=== PATIENT | female | born 1960 | race Caucasian/White ===

== ENCOUNTER 2020-02-05 16:02 | Emergency (ER) | payer SELFPAY ==
[2020-02-05] MEDS ORDERED: Sodium Chloride 0.9% 10 ML Syringe FLUSH PRN (16:41)
[2020-02-05] MEDS ORDERED: Ketorolac 30 MG/ML SDV IVPUSH ONE (16:41)
[2020-02-05] MEDS ORDERED: Sodium Chloride 0.9% 1,000 ML IV SCH (16:45)
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
[2020-02-05] MEDS ORDERED: cefTRIAXone 1 GM in Sodium Chloride 0.9% 100 ML IV ONE (17:08)
== END 2020-02-05 18:20 | disposition home or self-care (01) ==
LOC: JD.ED 16:02
DX: L03.811 Cellulitis of head [any part, except face] (principal); F17.210 Nicotine dependence, cigarettes, uncomplicated; Z91.048 Other nonmedicinal substance allergy status
CPT/HCPCS: 36415; 80053; 83605; 85025; 86140; 87040; 96365; 96375; 99283; J0696; J1885; J7030; J7050

== ENCOUNTER 2020-03-31 14:41 | Emergency (ER) | payer SELFPAY ==
[2020-03-31] MEDS ORDERED: HYDROmorphone 1 MG/ML Syringe IM ONE (15:27)
[2020-03-31] MEDS ORDERED: Ondansetron 4 MG Tab.DIS PO ONE (15:27)
--- NOTE | 2020-03-31 15:51 | EDM.PDOC ---
ED HPI GENERAL MEDICAL PROBLEM - General Chief Complaint: Lower Extremity Injury/Pain Stated Complaint: R FOOT INJURY Time Seen by Provider: 03/31/20 15:14 Source of Information: Reports: Patient, RN Notes Reviewed History Limitations: Reports: No Limitations - History of Present Illness INITIAL COMMENTS - FREE TEXT/NARRATIVE: Patient is a 59-year-old female who presents the ED for evaluation of her right foot/ankle injury. Patient notes 1 week ago Monday, she was sitting on an elevated flower bed, and jumped off and landed on both feet, she states she instantly had pain in her right ankle, and thought maybe she just sprained it. She has been using Tylenol and ibuprofen, and icing it fairly regularly. She is appreciating quite a bit of swelling and bruising to the bottom of her foot, and on the lateral aspect of her right foot. States her pain is around a 10 out of 10, with weightbearing and walking. She states at rest is not painful at all. She has been using crutches as well, states pain is is getting too intense so she comes to the ER for further evaluation. 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 ED EXAM, GENERAL - Physical Exam Exam: See Below Exam Limited By: No Limitations General Appearance: Alert, WD/WN, No Apparent Distress Respiratory/Chest: No Respiratory Distress, Lungs Clear, Normal Breath Sounds, No Accessory Muscle Use, Chest Non-Tender Cardiovascular: Normal Peripheral Pulses, Regular Rate, Rhythm, No Murmur Peripheral Pulses: 2+: Radial (L), Radial (R) Extremities: Joint Swelling (2+ swelling to right ankle), Limited Range of Motion (of right wrist d/t pain) Neurological: Alert, Oriented, Normal Cognition, No Motor/Sensory Deficits Psychiatric: Normal Affect, Normal Mood Skin Exam: Warm, Dry, Intact, No Rash, Ecchymosis (on the dorsum of the foot, the lateral surface and on the plantar surface as well.) Course - Vital Signs Last Recorded V/S: Last Vital Signs Temp 98.1 F 03/31/20 15:13 Pulse 102 H 03/31/20 15:13 Resp 18 03/31/20 15:13 BP 148/73 H 03/31/20 15:13 Pulse Ox 98 03/31/20 15:13 - Orders/Labs/Meds Orders: Active Orders 24 hr Category Date Time Status Ankle Min 3V Rt [CR] Stat Exams 03/31/20 15:19 Ordered Foot 2V Rt [CR] Stat Exams 03/31/20 15:19 Ordered OLEKSANDR Bandage [Elastic Wrap] [OM.PC] Routine Oth 03/31/20 17:05 Ordered Meds: Medications Discontinued Medications Generic Name Dose Route Start Last Admin Trade Name Elizabeth PRN Reason Stop Dose Admin Hydromorphone HCl 1 mg 03/31/20 15:27 03/31/20 15:55 Dilaudid IM 03/31/20 15:28 1 mg ONETIME ONE Administration Ondansetron HCl 4 mg 03/31/20 15:27 03/31/20 15:55 Zofran Odt PO 03/31/20 15:28 4 mg ONETIME ONE Administration - Re-Assessments/Exams Free Text/Narrative Re-Assessment/Exam: 03/31/20 16:00 Patient presents to the ED for evaluation of her ongoing right ankle/foot injury. I do highly suspect that the patient is experiencing pain and swelling from a severely sprained/strained ankle. X-rays will be obtained at this time. Patient was given something for pain and nausea. 03/31/20 17:04 X-rays demonstrate no focal breaks, or other bony abnormalities. This was reviewed by myself and Dr. Covarrubias. The official radiology read is still pending. We will Oleksandr wrap the ankle, for compression purposes, she can still use the crutches, and we will get her some for pain, and have her evaluated by Dr. Silva for possible soft tissue injury. Departure - Departure Time of Disposition: 17:09 Disposition: Home, Self-Care 01 Condition: Good Clinical Impression: Right ankle pain Qualifiers: Chronicity: acute Qualified Code(s): M25.571 - Pain in right ankle and joints of right foot - Discharge Information *PRESCRIPTION DRUG MONITORING PROGRAM REVIEWED*: Yes *COPY OF PRESCRIPTION DRUG MONITORING REPORT IN PATIENT FEDE: No Prescriptions: Acetaminophen/HYDROcodone [Troy 325-5 MG] 1 tab PO Q6H PRN #15 tablet PRN Reason: Pain Instructions: Ankle Pain Referrals: PCP,None [Primary Care Provider] - Forms: ED Department Discharge Additional Instructions: You have been evaluated in the ED for your right ankle/foot injury. Your x-ray demonstrated no acute fracture or suspicious bony abnormality. Please use ice as tolerated to the affected area. Please try to elevated the affected extremity as much as possible to relieve swelling. You may take Tylenol 500 mg or ibuprofen 600mg q6 hrs for pain relief. Please do so until you have a tolerable level of pain with activity. Do not exceed 4000mg Tylenol, Do not exceed 3200mg ibuprofen in a 24 hour time period. You were given a prescription for a strong pain medication, hydrocodone/acetaminophen 5/325, please take 1 tab every 6 hours as needed for pain not relieved by Tylenol or ibuprofen alone. Please note this does contain Tylenol in it, so do not take more than 4000 mg in a 24-hour time span. These medications can be addictive, so please take as few as possible to achieve adequate pain control. These meds can also be quite constipating, recommend that you increase your oral fluid intake and take a stool softener like MiraLAX while taking these medications. Please call Ortho for follow-up and further evaluation Dr. Silva is our orthopedic surgeon, his office number is [phone]. Please call and set up an appointment as soon as possible for further management. Please return to ED if your symptoms should change or worsen. Sepsis Event Note (ED) - Evaluation Sepsis Screening Result: No Definite Risk - Focused Exam Vital Signs: Vital Signs Temp Pulse Resp BP Pulse Ox 03/31/20 15:13 98.1 F 102 H 18 148/73 H 98 - My Orders Last 24 Hours: My Active Orders 03/31/20 15:19 Ankle Min 3V Rt [CR] Stat Foot 2V Rt [CR] Stat 03/31/20 17:05 OLEKSANDR Bandage [Elastic Wrap] [OM.PC] Routine - Assessment/Plan Last 24 Hours: My Active Orders 03/31/20 15:19 Ankle Min 3V Rt [CR] Stat Foot 2V Rt [CR] Stat 03/31/20 17:05 OLEKSANDR Bandage [Elastic Wrap] [OM.PC] Routine
--- NOTE | 2020-04-01 08:59 | CR ---
Right foot: 2 views of the right foot were obtained. Calcaneal fracture is again noted. Single screw within the distal shaft of the 1st and 5th metatarsals. Joint space narrowing is noted within the 1st MTP joint. Mild soft tissue swelling is noted. No additional abnormality is seen. Impression: 1. Calcaneal fracture. Please correlate if patient has symptoms to this area for this to be acute. 2. Previous surgery. 3. Degenerative change and soft tissue swelling. Diagnostic code #3 This report was dictated in MDT
--- NOTE | 2020-04-01 08:59 | CR ---
Right ankle: 4 views of the right ankle were obtained. Comparison: No prior ankle study. Calcaneal fracture is identified. This is located posterior to the subtalar joint. Single screw is noted within the 1st metatarsal as well as additional single screw within the 5th metatarsal. Ankle mortise is symmetric. No additional fracture or other abnormality is appreciated. Impression: 1. Calcaneal fracture. 2. Old surgery as noted above. 3. No additional bony abnormality is seen. Diagnostic code #3 This report was dictated in MDT
== END 2020-03-31 17:28 | disposition home or self-care (01) ==
LOC: JD.ED 14:41
DX: M25.571 Pain in right ankle and joints of right foot (principal)
CPT/HCPCS: 73610; 73620; 96372; 99283; A9270; J1170

== ENCOUNTER 2020-08-14 21:25 | Emergency (ER) | payer OTHER ==
[2020-08-14] MEDS ORDERED: Fluconazole 150 MG Tab PO STA (22:23)
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
== END 2020-08-14 22:40 | disposition home or self-care (01) ==
LOC: JD.ED 21:25
DX: L65.9 Nonscarring hair loss, unspecified (principal); L29.9 Pruritus, unspecified; F17.210 Nicotine dependence, cigarettes, uncomplicated; Z91.048 Other nonmedicinal substance allergy status
CPT/HCPCS: 99283; A9270

== ENCOUNTER 2021-03-10 05:15 | Emergency (ER) | payer MEDICAID ==
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
== END 2021-03-10 08:40 | disposition home or self-care (01) ==
LOC: JD.ED 05:15
DX: H10.023 Other mucopurulent conjunctivitis, bilateral (principal); L28.0 Lichen simplex chronicus; Z87.898 Personal history of other specified conditions; Z86.16 Personal history of COVID-19; Z72.0 Tobacco use; Z91.048 Other nonmedicinal substance allergy status; Z79.899 Other long term (current) drug therapy
CPT/HCPCS: 99283; 99284

== ENCOUNTER 2021-05-23 12:04 | Emergency (ER) | payer MEDICAID, OTHER ==
--- NOTE | 2021-05-23 14:26 | CR ---
Chest: PA and lateral views of the chest were obtained. Comparison: No prior chest imaging is available. Heart size and mediastinum are within normal limits. Left lung shows minimal atelectasis within the lateral left costophrenic angle. Lungs otherwise are clear. Slight degenerative change is seen within the spine with disc space narrowing and minimal osteophytes. No acute osseous abnormality is appreciated. Impression: 1. Slight degenerative change as noted above. 2. Minimal atelectasis within the lateral left costophrenic angle. 3. Nothing acute is appreciated on two-view chest x-ray. Diagnostic code #2
[2021-05-23 14:53] LABS: CORONAVIRUS COVID-19 NAA NEGATIVE (NEGATIVE)
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
--- NOTE | 2021-05-23 15:28 | CR ---
Right knee: AP and lateral views of the right knee were obtained. Comparison: No prior knee exam is available. Diffuse soft tissue swelling appears to be present. Chondrocalcinosis is noted within the medial and lateral meniscus. Minimal osteophytes are seen off the lateral and medial joint. Minimal joint space narrowing is seen medially. No acute fracture or other abnormality is appreciated. Impression: 1. Degenerative change as noted above. 2. Soft tissue swelling is noted. 3. No acute osseous abnormality is appreciated. Diagnostic code #2
== END 2021-05-23 15:39 | disposition home or self-care (01) ==
LOC: JD.ED 12:04
DX: S20.211A Contusion of right front wall of thorax, initial encounter (principal); S80.01XA Contusion of right knee, initial encounter; F17.210 Nicotine dependence, cigarettes, uncomplicated; Z91.09 Other allergy status, other than to drugs and biological substances; Z20.822 Contact with and (suspected) exposure to COVID-19; V49.9XXA Car occupant (driver) (passenger) injured in unspecified traffic accident, initial encounter; Y92.410 Unspecified street and highway as the place of occurrence of the external cause
CPT/HCPCS: 0240U; 71046; 73560; 99285